=== PATIENT | male | born 1980 | race Caucasian/White ===

== ENCOUNTER 2022-08-21 18:59 | Emergency (ER) | payer OTHER ==
[~2022-08-21] VITALS: Ht 180.3 cm; Wt 104.3 kg
[2022-08-21 19:05] VITALS: BP_SYST 132
[2022-08-21 19:55] VITALS: BP_SYST 132
== END 2022-08-21 19:55 ==
LOC: SED 18:59
DX: Z04.1 Encounter for examination and observation following transport accident (principal); X58.XXXA Exposure to other specified factors, initial encounter; Y93.89 Activity, other specified; Y92.89 Other specified places as the place of occurrence of the external cause; Y99.8 Other external cause status
CPT/HCPCS: 99283